=== PATIENT | female | born 1960 | race Two or more races ===

== ENCOUNTER 2017-03-02 15:31 | Emergency (ER) | payer MEDICARE, MEDICAID ==
[~2017-03-02] VITALS: Ht 157.5 cm; Wt 62.6 kg
[~2017-03-02 15:31] MED LIST: ATIVAN2 MG ORAL; BRIMONIDINE TART5 ML BOTH EYES; COSOPT1 DRO2 BOTH EYES; LISINOPRIL40 MG ORAL; NEXIUM20 MG ORAL; PRED MILD5 ML OP; SIMVASTATIN40 MG ORAL; SYNTHROID25 MCG ORAL; TIMOPTIC 0.5%1 DRO1 BOTH EYES; TRUSOPT10 ML BOTH EYES; VIGAMOX1 DROP BOTH EYES
[2017-03-02 15:46] VITALS: BP 138/75
[2017-03-02] MEDS ORDERED: BENADRYL25 MG ORAL (16:18)
[2017-03-02] MEDS ORDERED: KENALOG 0.025%15 GM APPLIC (16:18)
[2017-03-02 16:22] VITALS: BP 138/75
--- NOTE | 2017-03-02 22:27 | Emergency Room Report ---
History of Present Illness General Chief Complaint: Skin Rash/Abscess Source: Patient Present Illness HPI The patient is a 56 yo F presenting for rash. She states she was using hair coloring one week prior and then noticed an itchy red rash at the scalp. She denies any pain. She has taken one benadryl per day but states it is not helping much. She denies any pain. She denies any known allergies besides sulfa. 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 Hx Cancer: No Hx Gastrointestinal Problems: No Hx Neurological Problems: No Review of Systems All Other Systems: negative except mentioned in HPI Physical Exam Vital Signs Date Time Temp Pulse Resp B/P (MAP) Pulse Ox O2 Delivery O2 Flow Rate FiO2 03/02/17 15:39 97.5 59 20 138/75 99 Room Air Sp02 EP Interpretation: reviewed, normal General Appearance: no apparent distress, alert, GCS 15, non-toxic Head: normocephalic, atraumatic 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 Macular Medical Decision Making PA Attestation Dr. Kovacs is my supervising physician. Patient management was discussed with my supervising physician Diagnostic Impression: Primary Impression: Dermatitis ER Course The patient is a 56 yo F presenting for rash. DDx considered but not limited to: contact dermatitis, seborrheic dermatitis, 1st degree burn, cellulitis, among others PE: afebrile. NAD frontal scalp erythema. Macular. Non tender. No edema. No other skin changes. The patient is given prescription for benadryl and topical steroid and told to FU with PMD and stop using the hair color. Last Vital Signs Date Time Temp Pulse Resp B/P (MAP) Pulse Ox O2 Delivery O2 Flow Rate FiO2 03/02/17 16:22 97.5 76 20 138/75 99 Room Air Status: improved Disposition: HOME, SELF-CARE Condition: Improved Scripts Triamcinolone Acet (Triamcinolone Acetonide) 15 Gm Cream..g. 0.1 % APPLIC TID, #15 GM Prov: AR MENDIETA 03/02/17 Diphenhydramine Hcl* (BENADRYL*) 25 Mg Capsule 25 MG ORAL Q6H Y for Itching, #30 CAP Prov: AR MENDIETA 03/02/17 Referrals: HAILEY PATEL (PCP) Patient Instructions: Rash Additional Instructions: I discussed my findings with the patient. All questions and concerns have been answered. Treatment and medication compliance have been addressed. I advised the patient that they need to follow up with PMD in 3-5 days. Return to ED if symptoms worsen, new symptoms arise, or if needed for any reason. Patient verbalized understanding of discharge instructions. AR MENDIETA Mar 02, 2017 22:27
== END 2017-03-02 16:22 | disposition home or self-care (01) ==
LOC: EMR 16:00
DX: L30.9 Dermatitis, unspecified (principal); I10 Essential (primary) hypertension; H54.8 Legal blindness, as defined in USA
CPT/HCPCS: 99284